=== PATIENT | female | born 1990 | race Caucasian/White ===

== ENCOUNTER 2025-05-31 11:45 | Outpatient (RCR) | payer OTHER, SELFPAY ==
[2025-05-14 11:02] VITALS: BMI 23.9
--- NOTE | 2025-05-14 11:59 | PC.ADMIT ---
Ankita is alert, oriented x4. She appears stated age, is well groomed and nourished. She was referred to [facility] through her therapist due to worsening symptoms of depression related to the process of obtaining custody of her 13 year old daughter back from an aunt. She expressed anhedonia, hopelessness,helplessness,low energy, decreased appetite and sleep. Ankita is pleasant but somewhat guarded. A bit perturbed about having to miss group to sit with another staff member. She reports she had been sober for 6 years. She had just gotten out of a long relationship and her mom . She relapsed on PCP for about 6 weeks. i didn't grieve appropriately. She is sober again, even quitting cigaretts about 2 weeks ago. She reports only smoking a cigarette a day. I'm chewing alot of gum and mints . She reports no alcohol use and no other substances. She is a tea drinker primarily and only 1-2 cups a day. She has a PCP and denies any existing health problems. She lives alone and has supports in her christian and recovery community. She is hoping to start going to a 7am meeting every day and secure a sponsor . Medical verification was completed with Ankita and [facility]. She denies any urges to harm self or others and any visual or perceptual disturbances. TB screen completed and negative. A copy of safety tool was reviewed and given to her.
[2025-05-14 12:23] VITALS: BP 122/78; PULSE 72; RESP 14; TEMP 36.2; O2SAT 97
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
--- NOTE | 2025-05-20 14:57 | HO.PHP ---
Client's case was reviewed and opened in teams.
--- NOTE | 2025-05-28 12:57 | HO.PHPPROGNO ---
Subjective Subjective Date of Service: 05/27/25 Reason For Visit: depression,DAYAN Interim History: Patient seen for follow-up, anticipating discharge at the end of program today although expresses interest in extending her stay. She shares situation with DCF/dealing with family and visitation issues has been primary stressor. SO frustrating dealing with my daughter's aunt . She presents with irritable edge, mildly pressured. She reports being medication compliant on Lamictal 100 mg, WB 150 mg, I suggest titrating dose of Lamictal or even adding on a prn medication for anxiety/sleep however patient strongly pushes back. I was here for depression and mood...my mood is fine now. I dont need any med changes. Also I been working out . Patient cites her custody cruz with her ex as 100% cause of depression, which had been set off in Oct when her mother . Went on a ambrose at the time. Naltrexone has been effective for cravings. Denies any thoughts of harming self or others. Depression severity is down from a 10/10 to a 5/10. Feels it would be a 0/10. Some days are still difficult when stressors are high I wont want to get out of bed...but those days are fewer. Reports no acute issues or concerns. Medication compliant, medications well-tolerated. Denies any adverse effects.? Medication Compliance: Yes Side effects from medications: No Attending Groups: Yes Review of Systems Acute medical concerns: No Mental Status Exam Mental Status Exam Narrative: Alert, oriented, in no acute distress. Calm, cooperative, engaged. No psychomotor agitation or neurovegetative retardation. Eye contact maintained. Mood depressed, affect constricted, irritable edge without notable lability. Speech normal. Thought process linear, coherent. Thought content related to stressors, vague aggressive ideation toward individual denies any HI intent urge or plan. no hopelessness noted, denies SI, intention, urge or plan. No gross paranoia or delusional content elicited. No evidence of psychosis. Insight limited and judgment fair but adequate Diagnostics Vital Signs (24Hr): BMI result Body Mass Index 23.9 Assessment & Plan Assessment & Plan (1) Phencyclidine (PCP) use disorder: Status: Acute Code(s): F16.90 - Hallucinogen use, unspecified, uncomplicated (2) Other specified episodic mood disorder: Status: Acute Code(s): F39 - Unspecified mood [affective] disorder Plan extend PHP patient declined making any changes to her medication regime (specifically titration of lamotrigine to 150 mg qd, so she will remain at 100 mg qd) continue regular medications Patient educated on: diagnosis, medication risk/benefits and substance abuse Informed Consent: understands Reason for contiued partial hosp. stay Substantial Risk for: stable for discharge Certification I certify that partial hospital treatment is medically necessary due to the symptoms and problems resulting from the patient's mental illness and the failure to treat the patient at the partial hospital level of care would likely result in the patient requiring inpatient psychiatric care which could not be prevented at a less intensive level of care. Total time managing care of this patient today _30___ minutes. Discharge Plan Discharge Attending provider: Brianna Calabrese Medications: Continued naltrexone 50 mg tablet 50 mg PO DAILY triamcinolone acetonide 0.1 % cream topical BID mometasone 0.1 % ointment topical DAILY benzoyl peroxide 5 % cleanser topical BID ketoconazole 2 % cream 1 appl topical lamotrigine 100 mg tablet 100 mg PO DAILY bupropion HCl 150 mg tablet extended release 24 hr 150 mg PO DAILY Patient Education: Anxiety (ED) Print Language: Central African
--- NOTE | 2025-05-28 14:12 | HO.PHP ---
[facility] staff member met with Ankita after group 1 due to her being disruptive to the group setting by not following group guidelines of no phones in groups. Ankita was texting and not listening to staff when being asked multiple times to put her phone away. [facility] staff member asked to meet with Ankita, who presented as irritable. Ankita said why, PHP staff member noted that she needs to meet with her and she said for what. [facility] staff member informed Ankita that she would like to discuss with her privately and not in front of others. Ankita just said oh and looked at two group members prior to going into the hallway. [facility] staff member explored with Ankita if there is an emergency occurring. Ankita said why you asking. [facility] staff member informed Ankita that she is asking because she was on her phone the full group period and it was very disruptive to the group setting even after she asked her multiple times to put her phone away. Ankita said there is no emergency she just returned to school and is working with her chemical process equipment operator to get her daughter back. [facility] staff assessed why she was seeking an extension if she is struggling to be present and not participating within the group. Ankita said you're talking about one moment. PHP staff informed her that she will be discharged on Saturday, she asked why Saturday, is it because of the extension. PHP staff member replied with yes. PHP staff member asked Ankita not to utilize her phone in the group setting and if she needs to take a call to step out. As PHP staff member was walking away, Ankita said you seem rude. PHP staff member said excuse me because she didn't fully hear her since she was mumbling and stating it when I was walking towards the door. She then said it again loudly so other group members could hear. PHP staff member responded with that she is sorry she feels that way, that was not the intent.
--- NOTE | 2025-05-31 15:56 | P.PNPSP_ITS ---
Subjective Subjective Date of Service: 05/31/25 Reason For Visit: depression,DAYAN Interim History: Patient seen for follow-up, anticipating discharge at the end of program today.? Mood is good today. Not notably irritable today. Denies h/h/SI/SIB thougths/AI/HI. No major events in the interim. Superficial. Distractible at times (mostly occupied with her cell phone during our appointment) but otherwise appears to be calm and regulated. Denies any recent substance use. Reports no acute issues or concerns. Medication compliant, medications well- tolerated. Denies any adverse effects.? Mood is stable.? Denies any hopelessness or SI. Denies thoughts of harming self or others at this time. Denies any aggressive ideation or HI. Denies any paranoia or AH or VH. Sleep, appetite, energy stable. Medication Compliance: Yes Side effects from medications: No Attending Groups: Yes Review of Systems Acute medical concerns: No Mental Status Exam Mental Status Exam Narrative: Denies any aggressive ideation or HI. Denies any paranoia or AH or VH. Sleep, appetite, energy stable. Alert, oriented, in no acute distress. Calm, cooperative. Mood stable, affect appropriate. Speech normal. Thought process linear, coherent, more goal- directed. Thought content related to stressors, future-oriented, denies any helplessness, hopelessness or SI.? No aggressive ideation or HI. No paranoia or delusional content elicited. No evidence of psychosis. Insight and judgment fair-good. Diagnostics Vital Signs (24Hr): BMI result Body Mass Index 23.9 Assessment & Plan Assessment & Plan (1) Phencyclidine (PCP) use disorder: Status: Acute Code(s): F16.90 - Hallucinogen use, unspecified, uncomplicated (2) Other specified episodic mood disorder: Status: Acute Code(s): F39 - Unspecified mood [affective] disorder Plan Discharge from [facility] Continue regular medications? Refills sent to pharmacy Will defer further medication management to outpatient provider *Safety plan reviewed *Discharge diagnoses, treatment course, discharge plan have been reviewed with patient (including medication regime, medication management, potential side effects) as well as treatment rationale were also revisited *Discharge paperwork signed and given to patient, copy sent for scanning to chart Patient educated on: diagnosis, medication risk/benefits and substance abuse Informed Consent: understands Reason for contiued partial hosp. stay Substantial Risk for: stable for discharge Certification I certify that partial hospital treatment is medically necessary due to the symptoms and problems resulting from the patient's mental illness and the failure to treat the patient at the partial hospital level of care would likely result in the patient requiring inpatient psychiatric care which could not be prevented at a less intensive level of care. Total time managing care of this patient today __30__ minutes. Discharge Plan Discharge Attending provider: Brianna Calabrese Medications: Continued naltrexone 50 mg tablet 50 mg PO DAILY triamcinolone acetonide 0.1 % cream topical BID mometasone 0.1 % ointment topical DAILY benzoyl peroxide 5 % cleanser topical BID ketoconazole 2 % cream 1 appl topical lamotrigine 100 mg tablet 100 mg PO DAILY bupropion HCl 150 mg tablet extended release 24 hr 150 mg PO DAILY Patient Education: Anxiety (ED) Print Language: Pashto
== END 2025-05-31 23:59 | disposition home or self-care (01) ==
LOC: HO.PHPA 11:45
PROVIDERS: Visit Provider Psychiatry & Neurology Psychiatry
DX: F16.90 Hallucinogen use, unspecified, uncomplicated (principal); F39 Unspecified mood [affective] disorder; Z79.899 Other long term (current) drug therapy
CPT/HCPCS: 90791; 90853

== ENCOUNTER → 2025-05-31 11:45 | Outpatient (BNV) | payer OTHER, SELFPAY | PROVIDERS: Visit Provider Psychiatry & Neurology Psychiatry | DX: F16.90 Hallucinogen use, unspecified, uncomplicated (principal); F39 Unspecified mood [affective] disorder | CPT/HCPCS: 99213 ==